=== PATIENT | male | born 1945 | race African-American/Black ===

== ENCOUNTER 2024-02-19 11:50 | Outpatient (CLI) | payer OTHER, SELFPAY ==
[2024-02-19 12:20] LABS: Basophils Absolute Auto 0.1 K/mm3 (0.0-0.1); Basophils Percent Auto 0.6 % (0.2-1.2); Eosinophils Absolute Auto 0.1 K/mm3 (0-0.3); Eosinophils Percent Auto 0.7 % (0-4.4); Hematocrit 43.5 % (42.0-52.0); Hemoglobin 15.4 g/dL (14.0-18.0); Immature Granulocyte Absolute 0.04 K/mm3 (0.00-0.031); Immature Granulocyte Percent A 0.5 % (0-0.5); Lymphocytes Absolute Auto 2.18 K/mm3 (0.9-3.2); Lymphocytes Percent Auto 25.8 % (18.3-44.2); Mean Corpuscular HGB Conc 35.4 g/dl (32-36); Mean Corpuscular Hemoglobin 29.7 pg (26-34); Mean Platelet Volume 10.6 fl (7.4-10.4); Monocytes Absolute Auto 0.7 K/mm3 (0.1-0.6); Monocytes Percent Auto 8.5 % (2.6-8.5); Neutrophils Absolute Auto 5.4 K/mm3 (1.3-6.7); Neutrophils Percent Auto 63.9 % (45.5-73.1); Platelet Count Result 212 k/mm3 (150-375); Red Blood Count 5.18 M/mm3 (4.6-6.20); Red Cell Distribution Width 14.5 % (11.5-14.5); White Blood Count 8.5 K/mm3 (4.5-10.0)
[2024-02-19 12:33] LABS: Alanine Aminotransferase 35 U/L (6-50); Albumin Level 4.4 g/dL (3.5-5.1); Alkaline Phosphatase 77 U/L (38-126); Anion Gap 9 mmol/L (4-12); Aspartate Amino Transferase 31 U/L (17-59); Bilirubin,Total 1.5 mg/dL (0.2-1.3); Blood Urea Nitrogen 15 mg/dL (9-20); Calcium 9.6 mg/dL (8.4-10.2); Carbon Dioxide 27 mmol/L (22-30); Chloride 103 mmol/L (98-107); Cholesterol 127 mg/dL (0-200); Estimated Glomerular Filt Rate 55; Glucose 102 mg/dL (65-110); HDL Direct 52 mg/dL; Hemoglobin A1C 5.8 % (<5.7); Potassium 4.2 mmol/L (3.4-5.0); Sodium 139 mmol/L (137-145); Triglycerides 114 mg/dL (<150)
[2024-02-19 12:44] LABS: LDL Cholesterol Direct 54 mg/dL
[2024-02-19 12:46] LABS: Add Urine Microscopic? NO; Appearance Urine Clear (Clear); Bilirubin Urine Negative (Negative); Blood Urine Negative (Negative); Color Urine Yellow (Yellow); Glucose Urine UA 3+ mg/dL (Negative); Ketones Urine Negative (Negative); Leukocyte Esterase Ur Negative LEU/UL (Negative); Nitrate Urine Negative (Negative); Protein Urine Negative (Negative); Specific Grav Ur 1.036 (1.001-1.035); Urobilinogen Urine 0.2 mg/dL (<2.0)
[2024-02-19 13:02] LABS: Prostate Specific Antigen 2.1 ng/mL (< OR = 4.0)
[2024-02-19 13:11] LABS: Free T4 Free Thyroxine 0.88 ng/mL (0.78-2.19); Vitamin D 25 Hydroxy 64.1 ng/mL
== END 2024-02-19 11:51 | disposition home or self-care (01) ==
PROVIDERS: PCP Internal Medicine; Visit Provider Internal Medicine
DX: I10 Essential (primary) hypertension (principal); E78.5 Hyperlipidemia, unspecified; Z13.1 Encounter for screening for diabetes mellitus; Z79.899 Other long term (current) drug therapy; E55.9 Vitamin D deficiency, unspecified; Z13.29 Encounter for screening for other suspected endocrine disorder; Z12.5 Encounter for screening for malignant neoplasm of prostate
CPT/HCPCS: 36415; 80053; 80061; 81003; 82306; 83036; 84153; 84439; 84443; 85025; G0103

== ENCOUNTER 2024-10-06 10:20 | Outpatient (CLI) | payer OTHER, SELFPAY ==
[2024-10-06 11:03] LABS: Alanine Aminotransferase 37 U/L (6-50); Albumin Level 4.1 g/dL (3.5-5.1); Alkaline Phosphatase 80 U/L (38-126); Anion Gap 7 mmol/L (4-12); Aspartate Amino Transferase 26 U/L (17-59); Bilirubin,Total 0.8 mg/dL (0.2-1.3); Blood Urea Nitrogen 14 mg/dL (9-20); Calcium 9.3 mg/dL (8.4-10.2); Carbon Dioxide 25 mmol/L (22-30); Chloride 105 mmol/L (98-107); Cholesterol 123 mg/dL (0-200); Estimated Glomerular Filt Rate 46; Glucose 91 mg/dL (65-110); HDL Direct 55 mg/dL; Sodium 137 mmol/L (137-145); Triglycerides 94 mg/dL (<150)
[2024-10-06 11:14] LABS: LDL Cholesterol Direct 41 mg/dL
[2024-10-06 11:20] LABS: Add Urine Microscopic? NO; Appearance Urine Clear (Clear); Bilirubin Urine Negative (Negative); Blood Urine Negative (Negative); Color Urine Yellow (Yellow); Glucose Urine UA 3+ mg/dL (Negative); Ketones Urine Negative (Negative); Leukocyte Esterase Ur Negative LEU/UL (Negative); Nitrate Urine Negative (Negative); Protein Urine Negative (Negative); Specific Grav Ur 1.016 (1.001-1.035); Urobilinogen Urine 0.2 mg/dL (<2.0); pH Urine 6.5 (5.0-9.0)
--- OUTSIDE RECORDS SUMMARY | 2024-10-06 11:39 | XMS_ITS | Clinical Summary ---
Author Organization [facility] [employer] Address [address] [place] [address] Care Team Providers Care Vascular Neurologist Name Role Phone Unavailable Primary Care Provider Unavailabl e Source Comments [facility] [employer],non-owned Affiliates and Associated Physician Practices is amultiple site organization consisting of ambulatory clinics and hospital sitesin [place], [place], [place] and [place]. This disclosure is being madepursuant to the Care Everywhere program and may not contain all information available regarding this patient. Last updated 18.[facility] [employer] Allergies No known active allergies Medications * Be aware that medications may not be up to date on this document. Alwaysverify current medications with the patient. No known medications Social History Tobacco Use Types Packs/Day Years Used Date Smoking Tobacco: Never Sex and Gender Information Value Date Recorded Sex Assigned at Not on file Legal Sex Male 7:59 AM CDT Gender Identity Not on file Sexual Orientation Not on file Last Filed Vital Signs Vital Sign Reading Time Taken Comments Blood Pressure 144/85 01/06/2013 10:37 AM CDT Pulse 64 01/06/2013 10:37 AM CDT Temperature - - Respiratory Rate 16 01/06/2013 10:37 AM CDT Oxygen Saturation 100% 01/06/2013 10:37 AM CDT Inhaled Oxygen Concentration - - Weight - - Height - - Body Mass Index - - Plan of Treatment Health Maintenance Due Date Last Done Comments HEPATITIS C SCREENING 06/20/1963 DTAP/TDAP/TD VACCINES (1 - Tdap) 1966 PNEUMOCOCCAL VACCINE 50+ (1 of 1 - PCV) 1997 ZOSTER VACCINE (1 of 2) 1997 Respiratory Syncytial Virus (RSV) Vaccine Pt: or over 60 yrs (1 - 1-dose 75+ series) 2022 COVID-19 VACCINE (2023-2 5 season) 2024 DEPRESSION SCREENING 06/15/2024 INFLUENZA VACCINE (Season Ended) 2025 HEPATITIS B VACCINE Aged Out No longe r eligible based on patient's age to complete this topic HIB VACCINE Aged Out No longer eligi ble based on patient's age to complete this topic HPV VACCINE Aged Out No longer eligi ble based on patient's age to complete this topic MENINGOCOCCAL (Group B) VACC INE SHARED DECISION-MAKING Aged Out No longer eligibl e based on patient's age to complete this topic MENINGOCOCCAL GROUPS A/C/Y/W VACCINE Aged Out No longer eligible b ased on patient's age to complete this topic Insurance MEDICARE [facility]
--- OUTSIDE RECORDS SUMMARY | 2024-10-06 11:39 | XMS_ITS | Clinical Summary ---
Author Organization [facility] Address [address], [address] [address] Phone Care Team Providers Care Crystal Flat Grinder Name Role Phone Provider, Unknown Primary Care Provider Unavaila ble Social History Tobacco Use Types Packs/Day Years Used Date Smoking Tobacco: Never Assessed Sex and Gender Information Value Date Recorded Sex Assigned at Not on file Legal Sex Male 11:46 PM CDT Gender Identity Not on file Sexual Orientation Not on file Plan of Treatment Health Maintenance Due Date Last Done Comments Hepatitis C Virus (HCV) Screening 1945 Zoster Immunization (3 of 3) 02/26/2022 01/01/2022, 12/14/2019, 12/13/2009 Respiratory Syncytial Virus (RSV) Immunization (Adult) (1 - 1-dose 75+ series) 2022 Influenza Immunization (#1) 2024 10/0 12/2020, 03/10/2020, 03/17/2019, Additional history exists SARS-COV-2 Immunization ( season) 2024 09/16/2021, 03/09/2021, 07/30/2020, Additional history exists DTaP/Tdap/Td Immunization Discontinued 03/21/2021 TdaP Immunization Completed 03/21/2021 Pneumococcal Immunization (50+ years) Completed 01/01/2022, 01/21/2019, 08/04/2014 Hepatitis B Immunization Aged Out No longer eligible based on patient's age to complete this topic Meningococcal Immunization (ACWY) Aged Out No longer eligible based on patient's age to complete this topic Rotavirus Immunization Aged Out No lo nger eligible based on patient's age to complete this topic Insurance MEDICARE C [employer] on file Care Teams Crystal Flat Grinder Relationship Specialty Start Date End Date Provider, Unknown UNKNOWN PCP - General 01/28/22
--- OUTSIDE RECORDS SUMMARY | 2024-10-06 11:39 | XMS_ITS | Clinical Summary ---
Author Organization [facility] Address [address] [place] [address] Care Team Providers Care Grocery Stock Clerk Name Role Phone Molly Weeks NP Unavailable Mele Smith MD Unavailable Andreina Corcoran NP Primary Care Provider Marlene Perez DO Unavailable [phone] Allergies No known active allergies Medications esomeprazole DR (NexIUM) 40 mg capsule Take 1 capsule (40 mg total) by mouth daily as needed Active losartan (COZAAR) 100 mg tablet Take 1 tablet (100 mg total) by mouth daily 12/19/19 21 Active vardenafiL (LEVITRA) 20 mg tablet Take by mouth daily as needed 05/23/20 21 Active cholecalcifero l (VITAMIN D-3) 400 unit capsule Active multivitamin tablet Take 1 tablet by mouth Active diltiaZEM CD (CARDIZEM CD) 360 mg 24 hr capsule Take 1 capsule (360 mg total) by mouth daily 02/12/20 23 Active Jardiance 10 mg tablet Take 1 tablet (10 mg total) by mouth daily 04/28/20 23 Active rosuvastatin (CRESTOR) 20 mg tablet Take 1 tablet (20 mg total) by mouth daily 02/12/20 23 Active papaverine-phe ntolamine-alpr ostadil (TRIMIX) solution injection 0.1 mL by intracavernosal route once for 1 dose 5 mL 6 05/01/20 23 Active hydrOXYzine (ATARAX) 10 mg tablet Take 1 tablet (10 mg total) by mouth daily as needed (nausea) 60 tablet 2 12/11/19 24 Active cyclobenzaprin e (FLEXERIL) 10 mg tablet Take 1 tablet (10 mg total) by mouth daily as needed for muscle spasms 60 tablet 2 12/11/19 24 Active Active Problems Problem Noted Date Diagnosed Date Encounter for screening colonoscopy 06/06/2024 Dizziness and giddiness 05/28/2021 Assessment & Plan (05/28/2021 12:20 PM BLOOD DONOR UNIT ASSISTANT): Hearing and Balance testing - call with results 64 ounces of caffeine free and soda free fluid daily ounces Referral to Cardiology Sensorineural hearing loss (SNHL) of both ears 1 07/29/2020 Assessment & Plan (01/13/2023 8:25 AM CDT): -chronic, stable -continue seeing Dr. Perez ENT as needed Assessment & Plan (05/28/2021 12:21 PM BLOOD DONOR UNIT ASSISTANT): Hearing and Balance testing - call with results 64 ounces of caffeine free and soda free fluid daily ounces Referral to Cardiology Ringing in ears, bilateral 05/28/2021 Assessment & Plan (05/28/2021 12:21 PM BLOOD DONOR UNIT ASSISTANT): Hearing and Balance testing - call with results 64 ounces of caffeine free and soda free fluid daily ounces Referral to Cardiology History of colon polyps 05/08/2021 Assessment & Plan (01/13/2023 6:59 AM CDT): Last colonoscopy completed 05/29/2021. Repeat in 3 years Personal history of colon cancer 05/08/2021 Overview (05/08/2021): Added automatically from request for surgery [id number] Hypertensive kidney disease with stage 3a chronic kidney disease 03/21/2021 Assessment & Plan (01/13/2023 8:24 AM CDT): -chronic, stable -Discussed/ordered labs -continue on amlodipine 5 mg daily and losartan 10 mg daily -recommend healthy, low-salt diet Assessment & Plan (02/13/2022 7:45 AM CDT): HPI: Condition is at goal A&P: Discussed/ordered labs, encouraged healthy, low carbohydrate lifestyle and at least 150min/week of exercise, continue on amlodipine 5mg daily, losartan 100mg daily Assessment & Plan (08/19/2021 12:01 PM BLOOD DONOR UNIT ASSISTANT): HPI: Condition is not at/near goal A&P: Discussed/ordered labs, encouraged healthy, low carbohydrate lifestyle and at least 150min/week of exercise, continue on losartan 100mg daily. Start on amlodipine 5mg daily. EKG done, normal, Slight sinus bradycardia. Nothing to be concerned with. Check blood pressure once daily. Send in blood pressure readings in [facility] in 1 week. Assessment & Plan (03/21/2021 10:01 AM CDT): HPI: Condition is stable A&P: Discussed/ordered labs, encouraged healthy, low carbohydrate lifestyle and at least 150min/week of exercise, continue on losartan 100mg daily GERD (gastroesophageal reflux disease) Assessment & Plan (01/13/2023 6:58 AM CDT): HPI: Condition is stable Continue on current meds esomeprazole the DR 40 mg daily as needed, encouraged healthy diet and exercise Avoid trigger foods including: carbonated beverages, caffeine, spicy, fried foods, tomatoes, cucumbers, mint, and acidic fruits/juices like orange/lemon/grapefruit. Avoid eating/drinking anything for at least 2 hours before bed. Sleep with bed propped. Discussed increased risk of cdif , bone loss and vit B12 deficiency with director long term care use of PPI with pt, would like to remain on medication at this time Assessment & Plan (03/21/2021 10:00 AM CDT): HPI: Condition is stable Continue on current meds esomeprazole 40mg daily as needed only-usually about once a week, encouraged healthy diet and exercise Avoid trigger foods including: carbonated beverages, caffeine, spicy, fried foods, tomatoes, cucumbers, mint, and acidic fruits/juices like orange/lemon/grapefruit. Avoid eating/drinking anything for at least 2 hours before bed. Sleep with bed propped. Discussed increased risk of cdif and vit B12 deficiency with director long term care use of PPI with pt, would like to remain on medication at this time Osteoarthritis 03/21/2021 Assessment & Plan (01/13/2023 8:24 AM CDT): -chronic, stable -patient receives injections in his hands and feet about twice a year -Discussed/ordered labs -continue seeing Dr. Smith Rheumatology Assessment & Plan (03/21/2021 9:59 AM CDT): HPI: Condition is stable , receives injections in hands and feet about twice a year A&P: Discussed/ordered labs, encouraged healthy, low carbohydrate lifestyle and at least 150min/week of exercise, continue f/u injections with rheumatology He will infrequently need tylenol or ibuprofen for breakthrough pain, continue on turmeric Peyronie disease 09/26/2020 Assessment & Plan (01/13/2023 7:00 AM CDT): -chronic, stable -Discussed/ordered labs -continue on trimix injections as directed and vardenafil 2.5 mg daily as needed -continue seeing Molly Weeks urology Assessment & Plan (03/21/2021 10:05 AM CDT): HPI: Condition is stable A&P: Discussed/ordered labs, encouraged healthy, low carbohydrate lifestyle and at least 150min/week of exercise, continue on trimix injections as directed, uses them infrequently. Continue on tadalafil 2.5mg. Continue to see oMlly Weeks Urology Resolved Problems Problem Noted Date Diagnosed Date Resolved Date Near syncope 05/28/2021 02/13/2022 Assessment & Plan (05/28/2021 12:21 PM BLOOD DONOR UNIT ASSISTANT): Referral to Cardiology BMI 25.0-25.9,adult 03/21/2021 02/14/20 22 Assessment & Plan (08/19/2021 11:36 AM BLOOD DONOR UNIT ASSISTANT): HPI: Condition is improving goal BMI <30 Pt down 13 pounds. A&P: Healthy, high-protein, lower carbohydrate, lower fat lifestyle and exercise for 150min/week recommended Substitutions: Recommend tracking everything you put in your mouth on an alexsandra like [employer] or [employer] carries a zero net carb bread If you are looking for whole potatoes, like to use in soup or new potato shape/flavor, radishes are a great replacement If you are looking for mashed potatoes, riced cauliflower in the frozen bag section are a great replacement For pasta, try using zucchini noodles, lay them out on a cookie sheet and pat dry with a tea towel to try to remove as much moisture as possible. Heat your pasta sauce on the stove and put the noodles in for 30-45 seconds. If you leave them in much longer they will become mushy [place] and/or coconut flour instead of regular flour For pizza dough, try fathead pizza dough recipe online. To get a crispy crust, bake on one side for 8-12 min, then flip over and bake on the other side for 8-12 min, then put toppings on and bake until the cheese on top of pizza melts chaffles recipe online For ice cream, try the brand Enlightened To replace coffee creamer and make it low carb, use heavy creamer with sugar free Torani sweetener For chips, try Whisps or pork rinds For yogurt, try Two Good mauritian yogurt Use Pinterest for recipe ideas. Type in low carb... Assessment & Plan (03/21/2021 10:11 AM CDT): HPI: Condition is stable goal BMI <30 A&P: Healthy, high-protein, lower carbohydrate, lower fat lifestyle and exercise for 150min/week recommended Substitutions: Recommend tracking everything you put in your mouth on an alexsandra like [employer] or [employer] carries a zero net carb bread If you are looking for whole potatoes, like to use in soup or new potato shape/flavor, radishes are a great replacement If you are looking for mashed potatoes, riced cauliflower in the frozen bag section are a great replacement For pasta, try using zucchini noodles, lay them out on a cookie sheet and pat dry with a tea towel to try to remove as much moisture as possible. Heat your pasta sauce on the stove and put the noodles in for 30-45 seconds. If you leave them in much longer they will become mushy [place] and/or coconut flour instead of regular flour For pizza dough, try fathead pizza dough recipe online. To get a crispy crust, bake on one side for 8-12 min, then flip over and bake on the other side for 8-12 min, then put toppings on and bake until the cheese on top of pizza melts chaffles recipe online For ice cream, try the brand Enlightened To replace coffee creamer and make it low carb, use heavy creamer with sugar free Torani sweetener For chips, try Whisps or pork rinds For yogurt, try Two Good mauritian yogurt Use Pinterest for recipe ideas. Type in low carb... RUQ pain 09/07/2019 03/21/2021 Assessment & Plan (09/07/2019 10:42 AM CDT): Pt had RUQ pain that felt similar to when he had SBO back in 2014. He says it went away after he had a BM and says BM was harder than usual. Since then, has not had any pain and normal BM's. Pt had colonoscopy 10/2017 and due again next October. Pt is aware. We discussed red flag symptoms and to call if any of these occur, otherwise f/u in office prn. Pt verbalized understanding. Impacted cerumen of left ear 07/13/2018 03/21/2021 Assessment & Plan (07/13/2018 5:36 PM BLOOD DONOR UNIT ASSISTANT): Excessive Ear Wax Prevention Cerumen accumulation or excessive ear wax can cause symptoms like-Hearing loss ?Earache ?Ear fullness ?Itchiness ?Reflex cough ?Dizziness ?Tinnitus Normal ears use a cotton ball dipped in mineral oil, olive oil, Baby oil, or [place] oil and place in the external canal for 10 to 20 minutes once per week. For Chronic cerumen impactions can perform on a scheduled baseis-3 drops of olive oil or Baby oil in each ear, three times daily for Three weeks, Three times per year. Routine cleaning of the ears by a health professional every 6 to 12 months is also suggested. Patients should be instructed that chronic use of cotton swabs or cerumenolytics should not be performed. Cerumenolytics are safe to use in patients with NO history of infections, perforations, or otologic surgery. Cerumenolytics should be avoided if tympanic membrane damage is suspected. If a patient has a history of drainage from the ear, ear pain, or frequent ear infections earlier in life, then the tympanic membrane may be impaired and cerumenolytics should not be employed. 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 Bain. He followed up with oncology and GI. Cleared now. Encounters Date Type Department Care Team Description 08/01/2024 1:02 PM BLOOD DONOR UNIT ASSISTANT Anesthesia Event [address] [address] Jaime Fox MD 08/01/2024 12:00 PM BLOOD DONOR UNIT ASSISTANT - 08/01/2024 12:30 PM BLOOD DONOR UNIT ASSISTANT Surgery [address] [address] Zoran Bain MD COLON REMOVAL SNARE 08/01/2024 11:04 AM BLOOD DONOR UNIT ASSISTANT - 08/01/2024 2:22 PM BLOOD DONOR UNIT ASSISTANT Hospital Encounter [address] [address] Zoran Bain MD Encounter for screening colonoscopy; Personal history of colon cancer Discharge Disposition: Discharge to home or self care 08/01/2024 Results Follow-Up [facility] Primary [facility] at [address] [place] [address] Andreina Corcoran NP from Last 3 Months Immunizations Immunization Administration Dates Next Due Influenza, Quad, Adjuvantate d, Intramuscular 04/07/2023 Influenza, Quadrivalent, Aisha l Culture-based MDCK, Preservative Free, Antibiotic Free, Intramuscular 03/17/2019,03/17/2019 Influenza, Quadrivalent, Hig h Dose, Preservative Free, Intrr 03/24/2022,03/21/2021,03/10/2020,03/10 Influenza, Quadrivalent, Spl it, Intramuscular 03/13/2016 Influenza, Quadrivalent, Spl it, Preservative Free, Intramuscular 03/19/2017,04/20/2015 Influenza, Trivalent, High D ose, Split, Preservative Free, Intramuscular 03/07/2024 Influenza, Trivalent, IM (MDV) 03/31/2014 Influenza, Unspecified 03/24/2022(Deferr ed: Patient Refused),02/13/2022(Deferred: Other) Pfizer SARS-CoV-2 Monovalent Vaccination (12+ Yrs) PURPLE 03/24/2022(Deferred: Patient Refused),03/09/2021,03/09/2021, 021,07/30/2020,07/09/2020 Pneumococcal Conjugate PCV 13 08/04/2014 Pneumococcal Conjugate Pcv20 01/01/2022 Pneumococcal Polysaccharide PPV23 01/21/2019,02/2019 RSV Vaccine, Pref, Recombina nt, Subunit, Adjuvanted, PF, IM (Arexvy) 04/07/2023 Tdap 03/21/2021 ZOSTER LIVE 12/14/2019,12/13/2009,12/13/2009 ZOSTER Recombinant 06/20/2022,01/01/2022 Surgical History Surgery Date Site/Laterality Comments POLYPECTOMY COLONOSCOPY 10/13/2017 - 11/12/2017 COLONOSCOPY 05/15/2021 - 06/14/2021 Medical History Medical History Date Comments Colon polyp Colon cancer (HCC) RUQ pain 09/07/2019 Impacted cerumen of left ear 07/13/2018 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 Bain. He followed up with oncology and GI. Cleared now. GERD (gastroesophageal reflux disease) Hypertension Near syncope 05/28/2021 Family History Medical History Relation Name Comments No Known Problems Father Cervical cancer Mother Diabetes Mother Hypertension Mother Relation Name Status Comments Father Mother Social History Tobacco Use Types Packs/Day Years Used Date Smoking Tobacco: Never Smokeless Tobacco: Never Tobacco Cessation:Counseling Given: Yes Alcohol Use Standard Drinks/Week Comments No 0 (1 standard drink = 0.6 oz pur e alcohol) AUDIT-C Answer Date Recorded Q1: How often do you have a drink containing alcohol? Never 03/07/2024 Q2: How many drinks containi ng alcohol do you have on a typical day when you are drinking? Patient does not drink Q3: How often do you have si x or more drinks on one occasion? Never 03/07/2024 PHQ-2 Answer Date Recorded PHQ-2 Total Score (If total score is 3 or more points, staff should administer the PHQ-9) 0 03/07/2024 Personal Safety Answer Date Recorded Have you ever been in or are you currently in a harmful physical or emotional relationship or is someone making you feel afraid or unsafe? Denies 08/01/2024 Sex and Gender Information Value Date Recorded Sex Assigned at Not on file Legal Sex Male 3:52 AM BLOOD DONOR UNIT ASSISTANT Gender Identity Not on file Sexual Orientation Not on file Obstetrics History Last Filed Vital Signs Vital Sign Reading Time Taken Comments Blood Pressure 139/66 08/01/2024 2:00 PM BLOOD DONOR UNIT ASSISTANT Pulse 66 08/01/2024 2:00 PM BLOOD DONOR UNIT ASSISTANT Temperature 36.7 C (98 F) 08/01/2024 2:00 PM BLOOD DONOR UNIT ASSISTANT Respiratory Rate 16 08/01/2024 2:00 PM BLOOD DONOR UNIT ASSISTANT Oxygen Saturation 98% 08/01/2024 2:00 PM BLOOD DONOR UNIT ASSISTANT Inhaled Oxygen Concentration - - Weight 72.6 kg (160 lb) 08/01/2024 11:13 AM BLOOD DONOR UNIT ASSISTANT Height 172.7 cm (5' 8 ) 08/01/2024 11:13 AM BLOOD DONOR UNIT ASSISTANT Body Mass Index 24.33 08/01/2024 11:13 AM BLOOD DONOR UNIT ASSISTANT Plan of Treatment Health Maintenance Due Date Last Done Comments Hepatitis B Screening 1963 Well Visit 65+ 03/24/2023 03/24/2022, 03/21/2021 Covid-19 Vaccine (9 - 2023-2 5 season) 2024 04/07/2023, 06/19/2022, 09/16/2021, Additional history exists Depression Screening 03/07/2025 03/07/2024, 01/13/2023, 03/24/2022, Additional history exists Colon Cancer Screening-FIT 08/01/202508/01, 05/29/2021, 10/19/2017, Additional history exists Colon Cancer Screening-FOBT 08/01/202507/16, 05/29/2021, 10/19/2017, Additional history exists Fall Risk Assessment 08/01/2025 08/01/2024, 03/07/2024, 01/13/2023, Additional history exists Colon Cancer Screening-Colonoscopy 08/01/2026 08/01/2024, 05/29/2021, 10/19/2017, Additional history exists Colorectal Cancer Screening 08/01/2026 Colon Cancer Screening-DNA Stool 08/01/2027 08/01/2024, 05/29/2021, 10/19/2017, Additional history exists Colon Cancer Screening-CT Colonography 08/01/2029 08/01/2024, 05/29/2021, 10/19/2017, Additional history exists Colon Cancer Screening-Sigmoidoscopy 08/01/2029 08/01/2024, 05/29/2021, 10/19/2017, Additional history exists DTaP/Tdap/Td Vaccine (2 - Td or Tdap) 03/21/2031 03/21/2021 Hepatitis C Screening Completed 05/08/2021 Pneumococcal vaccine 65+ Completed 022, 01/21/2019, 01/21/2019, Additional history exists Zoster Vaccine Completed 06/20/2022, 12/14, 12/14/2019, Additional history exists Prostate Cancer Screening-PSA Discontinued , 03/24/2022, 05/08/2021 Influenza Vaccine Completed 03/07/2024, , 03/24/2022, Additional history exists Procedures Procedure Name Priority Date/Time Associated Diagnosis Comments COLON REMOVAL SNARE 08/01/2024 1 2:57 PM BLOOD DONOR UNIT ASSISTANT Encounter for screening colonoscopy Personal history of colon cancer COLONOSCOPY 08/01/2024 11:38 AM BLOOD DONOR UNIT ASSISTANT SURGICAL PATHOLOGY STAT 08/01/2024 10 :12 AM BLOOD DONOR UNIT ASSISTANT Encounter for screening colonoscopy Personal history of colon cancer PSA SCREEN Routine 01/20/2023 1:12 PM CDT HEPATITIS C ANTIBODY Routine 05/08/2021 1:46 PM BLOOD DONOR UNIT ASSISTANT Encounter for hepatitis C screening test for low risk patient from Last 3 Months or Most Recently Relevant to Health Maintenance Results * Colonoscopy (08/01/2024 11:38 AM BLOOD DONOR UNIT ASSISTANT) Anatomical Region Laterality Modality Other Narrative Procedure Note Zoran Bain MD - 08/01/2024 11:[address] [facility] Patient Name: Symone Lees Procedure Date: 08/01/2024 11:38 AM Date of : 1945 Admit Type: Outpatient Age: 79 Gender: Male Attending MD: Zoran Bain M.D. Room: [facility] ENDOSCOPY ROOM 1 Note Status: Finalized Patient Profile: This is a 79 year old male. History of adenomapolyps. No family history of colon cancer. Procedure: Colonoscopy Indications: Surveillance: Personal history of adenomatouspolyps on last colonoscopy 3 years ago, Last colonoscopy: May 2021 Referring MD: Andreina Corcoran NP Providers: Ahmad A. Karadaghy, M.D. Impression: - One 18 mm polyp in the transverse colon, removed with a hot snare. Resected and retrieved. Clip (MR conditional) was placed. 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 - Internal hemorrhoids. Recommendation: - Await pathology results. - Repeat colonoscopy in 2 years for surveillance. - Continue present medications. Medicines: Monitored Anesthesia Care Complications: No immediate complications. Estimated Blood Loss: Estimated blood loss: none. Procedure: Pre-Anesthesia Assessment: - Prior to the procedure, a History and Physicalwas performed, and patient medications and allergieswere reviewed. The patient's tolerance of previous anesthesia was also reviewed. The risks andbenefits of the procedure and the sedation options and risks were discussed with the patient. All questions were answered, and informed consent was obtained. Prior Anticoagulants: The patient has taken noanticoagulant or antiplatelet agents. ASA Grade Assessment: Per anesthesia note and evaluation. After reviewing the risks and benefits, the patient was deemed in satisfactory condition to undergo the procedure. The benefits, risks and alternatives of theprocedure and sedation were discussed and informed consentwas obtained. All questions were answered. Please referto the signed informed consent document in the medical record. The bowel preparation used was Miralax via split dose instruction. The bowel preparation usedwas bisacodyl tablets via split dose instruction. The scope was passed under direct vision. The Pediatric Colonoscope [id number] was introduced through the anus and advanced to the the cecum, identified by appendiceal orifice and ileocecalvalve. The quality of the bowel preparation was good.Bowel prep was administered using a split dose. Findings: The perianal and digital rectal examinations were normal. The ascending colon and cecum appeared normal. An 18 mm polyp was found in the transverse colon. The polyp was semi-pedunculated. The polyp was removed with a hot snare. Resectionand retrieval were complete. To prevent bleeding after the polypectomy,one hemostatic clip was successfully placed (MR conditional). 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 There was no bleeding at the end ofthe procedure. The rectum, sigmoid colon and descending colon appeared normal. Internal hemorrhoids were found during retroflexion. The hemorrhoids were small. Electronically signed by Zoran Bain M.D. Zoran Bain M.D. 08/01/2024 1:37:15 PM Number of Addenda: 0 Note Initiated On: 08/01/2024 11:38 AM Procedure Code(s): --- Professional --- 99913, Colonoscopy, flexible; with removal of tumor(s), polyp(s), or other lesion(s) by snare technique Diagnosis Code(s): --- Professional --- Z86.010, Personal history of colonic polyps K64.8, Other hemorrhoids D12.3, Benign neoplasm of transverse colon (hepatic flexure orsplenic flexure) CPT copyright 2020 [employer]. All rights reserved. The codes documented in this report are preliminary and upon assembler unit reviewmay be revised to meet current compliance requirements. Recognized by the [employer] for promoting quality in endoscopy Zoran Bain MD ENDOSCOPY PROCEDURES Final Result * Surgical pathology (08/01/2024 10:12 AM BLOOD DONOR UNIT ASSISTANT) Tissue specimen (specimen) (Polyp(s), colon/colorectal, esophageal, gastric) 08/01/2024 1:25 PM BLOOD DONOR UNIT ASSISTANT Narrative PATHOLOGY [facility] ([place] - 08/03/2024 12:19 PM BLOOD DONOR UNIT ASSISTANT EPIC results best viewed via link to PDF [facility] Department of Pathology [address] [place] [address] Note to Patients: This report may contain a detailed description of human tissue sent by a health care provider to the laboratory for pathologic evaluation. The content of this report is essential for diagnosis and may provide important critical findings. This information may be unfamiliar to patients to review without a medical professional present. It is advised that the patient review this report in the presence of a health care provider who can answer questions and explain the details. Final Report Patient Name: SYMONE LEES Address: [address] [place] [id number] Gender: M : 1945 (Age: 79) Service: Gastro Location: [facility] Hospital #: [id number] Patient Type: [facility] Taken: 08/01/2024 Received: 08/02/2024 Accessioned: 08/02/2024 Reported: 08/03/2024 Physician(s):Dr. Zoran Bain M.D. Diagnosis: Colon, transverse, biopsy: - Tubular adenoma. - No evidence of high-grade dysplasia or malignancy. Ángel Avila MD Report Electronically Reviewed and Signed Out By Ángel Avila MD 08/03/2024 12:19:20 Specimen(s) Received: A: Transverse polyp x 1 Microscopic Description: Microscopic examination of the bisected specimen shows polypoid fragments of colonic mucosa with adenomatous mucosal changes consistent with a tubular adenoma. There is no evidence of high-grade dysplasia or malignancy. Clinical History: Personal history of colon cancer. Screening colonoscopy. Gross Description: The specimen is submitted in a single formalin filled container labeled SYMONE LEES and transverse polyp x1 . It is 1 red-thyaer polypoid tissue fragment measuring 7 mm. Inked and bisected. All in one cassette. Cr Burrell R.N., P.A./Anjali Simon M.D. REPORT IMAGES AND SCANNED DOCUMENTS, IF INCLUDED, ONLY VIEWABLE IN PDF VERSION OF REPORT The performance characteristics of some immunohistochemical stains, fluorescence in-situ hybridization tests and immunophenotyping by flow cytometry cited in this report (if any) were determined by the Surgical Pathology Department at [facility] as part of an ongoing air quality technician program and in compliance with federally mandated regulations drawn from the Clinical Laboratory Improvement Act of 1988 (CLIA '88). Some of these tests rely on the use of analyte specific reagents and are subject to specific labeling requirements by the US Food and Drug Administration. Such diagnostic tests may only be performed in a facility that is certified by the Department of Health and Human Services as a high complexity laboratory under CLIA '88. The FDA has determined that such clearance or approval is not necessary. This test is used for clinical purposes. It should not be regarded as investigational or for research. Nevertheless, federal rules concerning the medical use of analyte specific reagents require that the following disclaimer be attached to the report: This test was developed and its performance characteristics determined by the Surgical Pathology Department [facility]. It has not been cleared or approved by the U. S. Food and Drug Administration. Note for decalcified specimens: This assay has not been validated on decalcified tissues. Results should be interpreted with caution given the possibility of false negativity on decalcified specimens Zoran Bain MD LAB PATHOLOGY ORDERABLES F inal Result Performing Organization Address [facility] Co de Phone Number PATHOLOGY [facility] ([place]) 1 [place] [address] * PSA screen (01/20/2023 1:12 PM CDT) Pathologist [facility] PSA-Total 1.73 <=6.20 ng/mL [facility] ([place]) Comment: Interpretive Data AGE SEX REFERENCE INTERVAL 0 minutes-150 years Female None 0 minutes-49 years Male None 50-59 years Male 0-3.90 60-69 years Male 0-5.40 70-79 years Male 0-6.20 80-150 years Male 0-6.20 The Patric PSA Total assay procedure was used. Results from different manufacturers or methods may not be comparable. Serial testing should be performed using the same method. Current interpretive data last revised 21. Blood 01/20/2023 1:12 PM CDT 01/20/2023 1:46 PM CDT Ganesh Shankar MD LAB BLOOD ORDERABLES Final Re sult Performing Organization Address [facility] Co de Phone Number [facility] ([place] 1 [facility] [place] [address] * Hepatitis C antibody (05/08/2021 1:46 PM BLOOD DONOR UNIT ASSISTANT) Hep C Ab Nonreactive Nonreactive [facility] ([place]) Comment: Interpretive Data Nonreactive: Antibodies to HCV not detected. Does NOT exclude the possibility of recent exposure to HCV. Equivocal: Equivocal for HCV antibodies. Supplemental molecular testing will be automatically performed to determine infection status in accordance with current CDC screening recommendations. Reactive: Positive for HCV antibodies. This may represent current or past HCV infection. Supplemental molecular testing will be automatically performed to determine current infection status in accordance with current CDC screening recommendations. Interpretive data was last revised on 2019. Testing performed by: [facility], [address] [place] [address]., [id number] Blood 05/08/2021 1:46 PM BLOOD DONOR UNIT ASSISTANT 05/08/2021 7:24 PM BLOOD DONOR UNIT ASSISTANT us Yanni Quan NP LAB MICROBIOLOGY - GENERAL ORDERABLES Final Result [facility] ([place]) 1 [facility] [place] [address] from Last 3 Months or Most Recently Relevant to Health Maintenance Insurance MEDICARE [facility] H[facility]/PPO Address: [address] [address] [place] [address] R [facility]/PPO Address: [address] [address] Advance Directives For more information, please contact: [phone] * Full Code (Latest Code Status on File) Date Activated Date Inactivated Comments 08/01/2024 11:14 AM 08/01/2024 6:22 PM * Full Code Date Activated Date Inactivated Comments 08/01/2024 11:14 AM 08/01/2024 11:14 AM * Full Code Date Activated Date Inactivated Comments 05/29/2021 10:53 AM 05/29/2021 5:07 PM * Full Code Date Activated Date Inactivated Comments 06/30/2018 12:50 PM 06/30/2018 6:10 PM * Full Code Date Activated Date Inactivated Comments 06/30/2018 12:50 PM 06/30/2018 12:50 PM Care Teams Grocery Stock Clerk Relationship Specialty Start Date End Date Andreina Corcoran NP [address] [place] [id number] PCP - General Family Medicine 01/13/23 Molly Weeks NP Nurse Practitioner Urology 03/21/21 Mele Smith MD [address] [place], [place] [address] [address] Referring Physician Internal Medicine 03/21/21 Marlene Perez DO [address] [place] [address] DR [facility] [address] [place] [address] Consulting Physician Otolaryngology 01/13/23
--- OUTSIDE RECORDS SUMMARY | 2024-10-06 11:39 | XMS_ITS | Referral Summary ---
Author Organization [facility] Address [address] [place] [address] Care Team Providers Care Ct Scan Technician Name Role Phone Molly Weeks NP Unavailable Mele Smith MD Unavailable [phone] Andreina Corcoran NP Primary Care Provider [phone] Marlene Perez DO Unavailable [phone] Encounters Date Type Department Care Team Description 08/01/2024 Results Follow-Up [facility] [place] [address] [facility] [address] [place] [phone] Andreina Corcoran NP 08/01/2024 1:02 PM PACKAGER AND STRAPPER Anesthesia Event [address] [address] Jaime Fox MD 08/01/2024 12:00 PM PACKAGER AND STRAPPER - 08/01/2024 12:30 PM PACKAGER AND STRAPPER Surgery [address] [address] Zoran Bain MD COLON REMOVAL SNARE 08/01/2024 11:04 AM PACKAGER AND STRAPPER - 08/01/2024 2:22 PM PACKAGER AND STRAPPER Hospital Encounter [address] [address] Zoran Bain MD Encounter for screening colonoscopy; Personal history of colon cancer Discharge Disposition: Discharge to home or self care from Last 3 Months Allergies No known active allergies Medications esomeprazole [...] 05/28/2021 Assessment & Plan (05/28/2021 12:20 PM PACKAGER AND STRAPPER): Hearing and Balance testing - call with results 64 ounces of caffeine free and soda free fluid daily ounces Referral to Cardiology Sensorineural hearing loss (SNHL) of both ears 1 07/29/2020 Assessment & Plan (01/13/2023 8:25 AM CDT): -chronic, stable -continue seeing Dr. 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 Repeat in 3 years Personal history of colon cancer 05/08/2021 Overview (05/08/2021): Added automatically from request for surgery [id number] Hypertensive kidney disease with stage 3a chronic [...] daily Assessment & Plan (08/19/2021 12:01 PM PACKAGER AND STRAPPER): HPI: Condition is not at/near goal A&P: Discussed/ordered labs, encouraged healthy, low carbohydrate lifestyle and at least 150min/week of exercise, continue on losartan 100mg daily. Start on amlodipine 5mg daily. EKG done, normal, Slight sinus bradycardia. Nothing to be concerned with. Check blood pressure once daily. Send in blood pressure readings in [facility] in 1 week. Assessment & Plan (03/21/2021 [...] bone loss and vit B12 deficiency with prison use of PPI with pt, would like [...] of cdif and vit B12 deficiency with prison use of PPI with pt, would like [...] Continue on tadalafil 2.5mg. Continue to see Molly Weeks Urology Resolved Problems Problem Noted Date Diagnosed Date Resolved Date Near syncope 05/28/2021 02/13/2022 Assessment & Plan (05/28/2021 12:21 PM PACKAGER AND STRAPPER): Referral to Cardiology BMI 25.0-25.9,adult 03/21/2021 02/14/20 22 Assessment & Plan (08/19/2021 11:36 AM PACKAGER AND STRAPPER): HPI: Condition is improving goal BMI <30 Pt down 13 pounds. A&P: Healthy, high-protein, lower carbohydrate, lower fat lifestyle and exercise for 150min/week recommended Substitutions: Recommend tracking everything you put in your mouth on an alexsandra like [employer] or [employer] carries a zero net carb bread [...] in much longer they will become mushy [place] and/or coconut flour instead of regular flour [...] pork rinds For yogurt, try Two Good pakistani yogurt Use Pinterest for recipe ideas. Type in low carb... Assessment & Plan (03/21/2021 10:11 AM CDT): HPI: Condition is stable goal BMI <30 A&P: Healthy, high-protein, lower carbohydrate, lower fat lifestyle and exercise for 150min/week recommended Substitutions: Recommend tracking everything you put in your mouth on an alexsandra like [employer] or [employer] carries a zero net carb bread [...] in much longer they will become mushy [place] and/or coconut flour instead of regular flour [...] pork rinds For yogurt, try [employer] Good pakistani yogurt Use Pinterest for recipe ideas. Type [...] 03/21/2021 Assessment & Plan (07/13/2018 5:36 PM PACKAGER AND STRAPPER): Excessive Ear Wax Prevention Cerumen accumulation or excessive ear wax can cause symptoms like-Hearing loss ?Earache ?Ear fullness ?Itchiness ?Reflex cough ?Dizziness ?Tinnitus Normal ears use a cotton ball dipped in mineral oil, olive oil, Baby oil, or Welaka oil and place in the external canal [...] up with oncology and GI. Cleared now. Immunizations Immunization Administration Dates Next Due Influenza, [...] 03/21/2021 ZOSTER LIVE 12/14/2019,12/13/2009,12/13/2009 ZOSTER Recombinant 06/20/2022,01/01/2022 Social History Tobacco Use Types Packs/Day Years [...] on file Legal Sex Male 3:52 AM PACKAGER AND STRAPPER Gender Identity Not on file Sexual Orientation Not on file Last Filed Vital Signs Vital Sign Reading Time Taken Comments Blood Pressure 139/66 08/01/2024 2:00 PM PACKAGER AND STRAPPER Pulse 66 08/01/2024 2:00 PM PACKAGER AND STRAPPER Temperature 36.7 C (98 F) 08/01/2024 2:00 PM PACKAGER AND STRAPPER Respiratory Rate 16 08/01/2024 2:00 PM PACKAGER AND STRAPPER Oxygen Saturation 98% 08/01/2024 2:00 PM PACKAGER AND STRAPPER Inhaled Oxygen Concentration - - Weight 72.6 kg (160 lb) 08/01/2024 11:13 AM PACKAGER AND STRAPPER Height 172.7 cm (5' 8 ) 08/01/2024 11:13 AM PACKAGER AND STRAPPER Body Mass Index 24.33 08/01/2024 11:13 AM PACKAGER AND STRAPPER Plan of Treatment Not on file Procedures Procedure Name Priority Date/Time Associated Diagnosis Comments COLON REMOVAL SNARE 08/01/2024 1 2:57 PM PACKAGER AND STRAPPER Encounter for screening colonoscopy Personal history of colon cancer COLONOSCOPY 08/01/2024 11:38 AM PACKAGER AND STRAPPER SURGICAL PATHOLOGY STAT 08/01/2024 10 :12 AM PACKAGER AND STRAPPER Encounter for screening colonoscopy Personal history of colon cancer PSA SCREEN Routine 01/20/2023 1:12 PM CDT HEPATITIS C ANTIBODY Routine 05/08/2021 1:46 PM PACKAGER AND STRAPPER Encounter for hepatitis C screening test for low risk patient from Last 3 Months or Most Recently Relevant to Health Maintenance Results * Colonoscopy (08/01/2024 11:38 AM PACKAGER AND STRAPPER) Anatomical Region Laterality Modality Other Narrative Procedure Note Zoran Bain MD - 08/01/2024 11:38 AM CST [facility] Patient Name: Symone Lees Procedure Date: 08/01/2024 11:38 AM Date of : 1945 Admit Type: Outpatient Age: 79 Gender: Male Attending MD: Zoran Bain M.D. Room: [facility] ENDOSCOPY ROOM 1 Note Status: Finalized Patient Profile: This is a 79 year old male. History of adenomapolyps. No family history of colon cancer. Procedure: Colonoscopy Indications: Surveillance: Personal history of adenomatouspolyps on last colonoscopy 3 years ago, Last colonoscopy: May 2021 Referring MD: Andreina Corcoran NP Providers: Zoran Bain M.D. Impression: - One 18 mm polyp in the transverse colon, removed with a hot snare. Resected and retrieved. Clip (MR conditional) was placed. Clip plate maker: [employer]. - Internal hemorrhoids. Recommendation: - Await pathology [...] passed under direct vision. The Pediatric Colonoscope [id number] was introduced through the anus and advanced [...] clip was successfully placed (MR conditional). Clip plate maker: [employer]. There was no bleeding at the end ofthe procedure. The rectum, sigmoid colon and descending colon appeared normal. Internal hemorrhoids were found during retroflexion. The hemorrhoids were small. Electronically signed by Zoran Bain M.D. Zoran Bain M.D. 08/01/2024 1:37:15 PM Number of Addenda: 0 Note Initiated On: 08/01/2024 11:38 AM Procedure Code(s): --- Professional --- 80976, Colonoscopy, flexible; with removal of tumor(s), polyp(s), or other lesion(s) by snare technique Diagnosis Code(s): --- Professional --- Z86.010, Personal history of colonic polyps K64.8, Other hemorrhoids D12.3, Benign neoplasm of transverse colon (hepatic flexure orsplenic flexure) CPT copyright 2020 [employer]. All rights reserved. The codes documented in this report are preliminary and upon manufacturing scheduler reviewmay be revised to meet current compliance requirements. Recognized by the [employer] for promoting quality in endoscopy Zoran Bain MD ENDOSCOPY PROCEDURES Final Result * Surgical pathology (08/01/2024 10:12 AM PACKAGER AND STRAPPER) Tissue specimen (specimen) (Polyp(s), colon/colorectal, esophageal, gastric) 08/01/2024 1:25 PM PACKAGER AND STRAPPER Narrative PATHOLOGY [facility] ([place]) - 08/03/2024 12:19 PM PACKAGER AND STRAPPER EPIC results best viewed via link to PDF [facility] Department of Pathology [address] [place] [address] Note to Patients: This report may contain [...] Final Report Patient Name: SYMONE LEES Address: [address] [place] [address] Gender: M : 1945 (Age: 79) Service: Gastro Location: [facility] Hospital #: [id number] Patient Type: [facility] Taken: 08/01/2024 Received: 08/02/2024 Accessioned: 08/02/2024 [...] transverse polyp x1 . It is 1 red-thayer polypoid tissue fragment measuring 7 mm. Inked and bisected. All in one cassette. Cr Burrell R.N., P.Cathy./Anjali Simon M.D. REPORT IMAGES AND SCANNED DOCUMENTS, IF INCLUDED, ONLY VIEWABLE IN PDF VERSION OF REPORT The performance characteristics of some immunohistochemical stains, fluorescence in-situ hybridization tests and immunophenotyping by flow cytometry cited in this report (if any) were determined by the Surgical Pathology Department at [facility] as part of an ongoing quality assurance clerk program and in compliance with federally mandated [...] characteristics determined by the Surgical Pathology Department [facility]. It has not been cleared or approved by the U. S. Food and Drug Administration. Note for decalcified specimens: This assay has not been validated on decalcified tissues. Results should be interpreted with caution given the possibility of false negativity on decalcified specimens Zoran Bain MD LAB PATHOLOGY ORDERABLES F inal Result PATHOLOGY [facility] ([facility] [address] [place] [address] * PSA screen (01/20/2023 1:12 PM CDT) PSA-Total 1.73 <=6.20 ng/mL [facility] ([place]) Comment: Interpretive Data AGE SEX REFERENCE INTERVAL [...] 1:12 PM CDT 01/20/2023 1:46 PM CDT us Ganesh Shankar MD LAB BLOOD ORDERABLES Final Re sult Performing Organization Address [facility] Co de Phone Number [facility] ([place]) 1 [facility] Department [place] [address] * Hepatitis C antibody (05/08/2021 1:46 PM PACKAGER AND STRAPPER) Hep C Ab Nonreactive Nonreactive [facility] ([place]) Comment: Interpretive Data Nonreactive: Antibodies to HCV [...] last revised on 2019. Testing performed by: [facility], [address] [place] [address], [place]., [address] Blood 05/08/2021 1:46 PM PACKAGER AND STRAPPER 05/08/2021 7:24 PM PACKAGER AND STRAPPER us Yanni Quan NP LAB MICROBIOLOGY - GENERAL ORDERABLES Final Result Performing Organization Address City/[facility]/ZIP Co de Phone Number [facility] [place]) [address] [place] [address] from Last 3 Months or Most Recently Relevant to Health Maintenance Insurance [address] [id number] MEDICARE [facility] Address: [address] [address] [facility] Advance Directives For more information, please contact: [phone] * Full Code (Latest Code Status on [...] 12:50 PM 06/30/2018 12:[address] Scan Technician Relationship Specialty Start Date End Date Andreina Corcoran NP [address] [facility] [address] [place] [address] PCP - General Family Medicine 01/13/23 Molly Weeks NP Nurse Practitioner Urology 03/21/21 Mele Smith MD [address] [place] [address] [address] [place] [address] Referring Physician Internal Medicine 03/21/21 Marlene Perez DO [address] [facility] [address] LATONIA Willett [facility] [address] [place] [address] Consulting Physician Otolaryngology 01/13/23
== END 2024-10-06 10:21 | disposition home or self-care (01) ==
LOC: ANHLAB 10:22
PROVIDERS: PCP Internal Medicine; Visit Provider Internal Medicine
DX: I12.9 Hypertensive chronic kidney disease with stage 1 through stage 4 chronic kidney disease, or unspecified chronic kidney disease (principal); N18.9 Chronic kidney disease, unspecified; Z79.899 Other long term (current) drug therapy; Z09 Encounter for follow-up examination after completed treatment for conditions other than malignant neoplasm
CPT/HCPCS: 36415; 80053; 80061; 81003

== ENCOUNTER 2024-12-06 11:37 | Outpatient (CLI) | payer OTHER, SELFPAY ==
[2024-12-06 12:04] LABS: Basophils Percent Auto 0.6 % (0.2-1.2); Eosinophils Absolute Auto 0.1 K/mm3 (0-0.3); Eosinophils Percent Auto 0.9 % (0-4.4); Hematocrit 41.5 % (42.0-52.0); Hemoglobin 14.8 g/dL (14.0-18.0); Immature Granulocyte Absolute 0.04 K/mm3 (0.00-0.031); Immature Granulocyte Percent A 0.6 % (0-0.5); Lymphocytes Absolute Auto 1.66 K/mm3 (0.9-3.2); Lymphocytes Percent Auto 24.3 % (18.3-44.2); Mean Corpuscular HGB Conc 35.7 g/dl (32-36); Mean Corpuscular Hemoglobin 30.1 pg (26-34); Mean Corpuscular Volume 84.5 fl (80-100); Mean Platelet Volume 10.3 fl (7.4-10.4); Monocytes Absolute Auto 0.6 K/mm3 (0.1-0.6); Monocytes Percent Auto 8.9 % (2.6-8.5); Neutrophils Absolute Auto 4.4 K/mm3 (1.3-6.7); Neutrophils Percent Auto 64.7 % (45.5-73.1); Platelet Count Result 200 k/mm3 (150-375); Red Blood Count 4.91 M/mm3 (4.6-6.20); Red Cell Distribution Width 14.7 % (11.5-14.5); White Blood Count 6.8 K/mm3 (4.5-10.0)
[2024-12-06 12:16] LABS: Anion Gap 8 mmol/L (4-12); Blood Urea Nitrogen 15 mg/dL (9-20); Calcium 9.3 mg/dL (8.4-10.2); Carbon Dioxide 26 mmol/L (22-30); Chloride 105 mmol/L (98-107); Estimated Glomerular Filt Rate 45; Glucose 88 mg/dL (65-110); Potassium 4.5 mmol/L (3.4-5.0); Sodium 139 mmol/L (137-145)
== END 2024-12-06 11:38 | disposition home or self-care (01) ==
LOC: ANHLAB 11:38
PROVIDERS: PCP Internal Medicine; Visit Provider Internal Medicine
DX: I95.1 Orthostatic hypotension (principal); Z79.899 Other long term (current) drug therapy
CPT/HCPCS: 36415; 80048; 85025

== ENCOUNTER 2025-03-08 11:05 | Outpatient (CLI) | payer OTHER, SELFPAY ==
--- OUTSIDE RECORDS SUMMARY | 2025-03-08 10:55 | XMS_ITS | Clinical Summary ---
Author Organization [facility] [place] Address [address] [place] [address] Care Team Providers Care Last Pattern Grader Name Role Phone Unavailable Primary Care Provider Unavailabl e Source Comments [facility] [place],non-owned Affiliates and Associated Physician Practices is amultiple site organization consisting of ambulatory clinics and hospital sitesin [place], [place], [place] and [place]. This disclosure is being madepursuant to the Care Everywhere program and may not contain all information available regarding this patient. Last updated 18.[facility] [place] Allergies No known active allergies Medications * [...] yrs (1 - 1-dose 75+ series) 2022 DEPRESSION SCREENING 06/15/2024 COVID-19 VACCINE (2023-2 5 season) 2025 INFLUENZA VACCINE (#1) 2025 HEPATITIS B VACCINE Aged Out No [...] age to complete this topic Insurance MEDICARE [facility]
--- OUTSIDE RECORDS SUMMARY | 2025-03-08 10:55 | XMS_ITS | Clinical Summary ---
Author Organization [facility] Address [address], [address] [address] Phone Care Team Providers Care Counter Hand Name Role Phone Provider, Unknown Primary Care [...] Screening 1945 Zoster Immunization (3 of 3) 02/26/2022, 12/14/2019, 12/13/2009 Respiratory Syncytial Virus (RSV) Immunization (Adult) (1 - 1-dose 75+ series) 2022 Influenza Immunization (#1) 2025 10/0 12/2020, 03/10/2020, 03/17/2019, Additional history exists SARS-COV-2 Immunization ( season) 2025 09/16/2021, 03/09/2021, 07/30/2020, Additional history exists DTaP/Tdap/Td Immunization Discontinued 03/21/2021 TdaP Immunization Completed 03/21/2021 Pneumococcal Immunization (50+ years) Completed 01/01/2022, 01/21/2019, 08/04/2014 Hepatitis B Immunization Aged Out No longer eligible based on patient's age to complete this topic Human Papillomavirus (HPV) Immunization Aged Out No longer eligible based on patient's age to complete this topic Meningococcal Immunization (ACWY) Aged Out No longer eligible based on patient's age to complete this topic Rotavirus Immunization Aged Out No lo nger eligible based on patient's age to complete this topic Insurance MEDICARE C [employer] on file Care Teams Counter Hand Relationship Specialty Start Date End Date Provider, Unknown UNKNOWN PCP - General 01/28/22
--- OUTSIDE RECORDS SUMMARY | 2025-03-08 10:55 | XMS_ITS | Clinical Summary ---
Author Organization [facility] Address [address] [place] [address] Care Team Providers Care Analytical Sciences Director Name Role Phone Molly Weeks NP Unavailable Mele Smith MD Unavailable [phone] Andreina Corcoran NP Primary Care Provider Marlene Perez DO Unavailable [phone] Allergies No known active allergies Medications esomeprazole [...] total) by mouth daily 02/12/20 23 Active hydrOXYzine (ATARAX) 10 mg tablet Take 1 tablet (10 mg total) by mouth daily as needed (nausea) 60 tablet 2 12/11/19 24 Active cyclobenzaprin e (FLEXERIL) 10 mg tablet Take 1 tablet (10 mg total) by mouth daily as needed for muscle spasms 60 tablet 2 12/11/19 24 Active papaverine-phe ntolamine-alpr ostadil (TRIMIX) solution injection 0.1 mL by intracavernosal route once for 1 dose 5 mL 1 12/16/19 25 Active Active Problems Problem Noted Date Diagnosed Date Encounter for screening colonoscopy 06/06/2024 Dizziness and giddiness 05/28/2021 Assessment & Plan (05/28/2021 12:20 PM SINGING WAITER OR WAITRESS): Hearing and Balance testing - call with results 64 ounces of caffeine free and soda free fluid daily ounces Referral to Cardiology Sensorineural hearing loss (SNHL) of both ears 1 07/29/2020 Assessment & Plan (01/13/2023 8:25 AM CDT): -chronic, stable -continue seeing Dr. 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 Repeat in 3 years Personal history of colon cancer 05/08/2021 Overview (05/08/2021): Added automatically from request for surgery [id number] Hypertensive kidney disease with stage 3a chronic [...] daily Assessment & Plan (08/19/2021 12:01 PM SINGING WAITER OR WAITRESS): HPI: Condition is not at/near goal A&P: Discussed/ordered labs, encouraged healthy, low carbohydrate lifestyle and at least 150min/week of exercise, continue on losartan 100mg daily. Start on amlodipine 5mg daily. EKG done, normal, Slight sinus bradycardia. Nothing to be concerned with. Check blood pressure once daily. Send in blood pressure readings in [facility] in 1 week. 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 A&P: Healthy, high-protein, lower carbohydrate, lower fat lifestyle and exercise for 150min/week recommended Substitutions: Recommend tracking everything you put in your mouth on an alexsandra like [employer] or [employer] carries a zero net carb bread [...] in much longer they will become mushy [place] and/or coconut flour instead of regular flour [...] pork rinds For yogurt, try Two Good cuban yogurt Use Pinterest for recipe ideas. Type in low carb... Assessment & Plan (03/21/2021 10:11 AM CDT): HPI: Condition is stable goal BMI <30 A&P: Healthy, high-protein, lower carbohydrate, lower fat lifestyle and exercise for 150min/week recommended Substitutions: Recommend tracking everything you put in your mouth on an alexsandra like [employer] or [employer] carries a zero net carb bread [...] in much longer they will become mushy [place] and/or coconut flour instead of regular flour [...] pork rinds For yogurt, try Two Good cuban yogurt Use Pinterest for recipe ideas. Type [...] 03/21/2021 Assessment & Plan (07/13/2018 5:36 PM SINGING WAITER OR WAITRESS): Excessive Ear Wax Prevention Cerumen accumulation or excessive ear wax can cause symptoms like-Hearing loss ?Earache ?Ear fullness ?Itchiness ?Reflex cough ?Dizziness ?Tinnitus Normal ears use a cotton ball dipped in mineral oil, olive oil, Baby oil, or Temperance oil and place in the external canal [...] Encounters Date Type Department Care Team Description 12/15/2024 Orders Only [facility] Medicine ([facility]) - [facility] Medicine Urology [address] Advanced Medicine [address]th [place] [address] [place] [address] Hank Arenas NP from Last 3 Months Immunizations Immunization [...] on file Legal Sex Male 3:52 AM SINGING WAITER OR WAITRESS Gender Identity Not on file Sexual Orientation Not on file Obstetrics History Last Filed Vital Signs Vital Sign Reading Time Taken Comments Blood Pressure 139/66 08/01/2024 2:00 PM SINGING WAITER OR WAITRESS Pulse 66 08/01/2024 2:00 PM SINGING WAITER OR WAITRESS Temperature 36.7 C (98 F) 08/01/2024 2:00 PM SINGING WAITER OR WAITRESS Respiratory Rate 16 08/01/2024 2:00 PM SINGING WAITER OR WAITRESS Oxygen Saturation 98% 08/01/2024 2:00 PM SINGING WAITER OR WAITRESS Inhaled Oxygen Concentration - - Weight 72.6 kg (160 lb) 08/01/2024 11:13 AM SINGING WAITER OR WAITRESS Height 172.7 cm (5' 8) 08/01/2024 11:13 AM SINGING WAITER OR WAITRESS Body Mass Index 24.33 08/01/2024 11:13 AM SINGING WAITER OR WAITRESS Plan of Treatment Health Maintenance Due Date Last Done Comments Hepatitis B Screening 1963 Well Visit 65+ 03/24/2023 03/24/2022, 03/21/2021 Covid-19 Vaccine (2024-07 6 season) 2025 04/07/2023, 06/19/2022, 09/16/2021, Additional history exists Influenza Vaccine (#1) 2025 , 04/07/2023, 03/24/2022, Additional history exists Depression Screening 03/07/2025 03/07/2024, [...] Prostate Cancer Screening-PSA Discontinued , 03/24/2022, 05/08/2021 Procedures Procedure Name Priority Date/Time Associated Diagnosis Comments COLONOSCOPY 08/01/2024 11:38 AM SINGING WAITER OR WAITRESS PSA SCREEN Routine 01/20/2023 1:12 PM CDT HEPATITIS C ANTIBODY Routine 05/08/2021 1:46 PM SINGING WAITER OR WAITRESS Encounter for hepatitis C screening test for low risk patient from Last 3 Months or Most Recently Relevant to Health Maintenance Results * Colonoscopy (08/01/2024 11:38 AM SINGING WAITER OR WAITRESS) Anatomical Region Laterality Modality Other Narrative Procedure Note Zoran Bain MD - 08/01/2024 11:38 AM CST [facility] Patient Name: Antonio Toure Procedure Date: 08/01/2024 11:38 AM Date of : 1945 Admit Type: Outpatient Age: 79 Gender: Male Attending MD: Zoran Bain M.D. Room: [facility] ENDOSCOPY ROOM 1 Note Status: Finalized Patient [...] retrieved. Clip (MR conditional) was placed. Clip energy professional: [employer]. - Internal hemorrhoids. Recommendation: - Await pathology [...] passed under direct vision. The Pediatric Colonoscope [id number] was introduced through the anus and advanced [...] clip was successfully placed (MR conditional). Clip energy professional: [employer]. There was no bleeding at the end ofthe procedure. The rectum, sigmoid colon and descending colon appeared normal. Internal hemorrhoids were found during retroflexion. The hemorrhoids were small. Electronically signed by Zoran Bain M.D. Zoran Bain M.D. 08/01/2024 1:37:15 PM Number of Addenda: 0 Note Initiated On: 08/01/2024 11:38 AM Procedure Code(s): --- Professional --- 53197, Colonoscopy, flexible; with removal of tumor(s), polyp(s), or other lesion(s) by snare technique Diagnosis Code(s): --- Professional --- Z86.010, Personal history of colonic polyps K64.8, Other hemorrhoids D12.3, Benign neoplasm of transverse colon (hepatic flexure orsplenic flexure) CPT copyright 2020 [employer]. All rights reserved. The codes documented in this report are preliminary and upon mutual fund analyst reviewmay be revised to meet current compliance requirements. Recognized by the [place] [employer] for promoting quality in endoscopy Zoran Bain MD ENDOSCOPY PROCEDURES Final Result * PSA screen (01/20/2023 1:12 PM CDT) PSA-Total 1.73 <=6.20 ng/mL [facility] Comment: Interpretive Data AGE SEX REFERENCE INTERVAL [...] MD LAB BLOOD ORDERABLES Final Re sult [facility] [address] [facility] [place] [address] * Hepatitis C antibody (05/08/2021 1:46 PM SINGING WAITER OR WAITRESS) Hep C Ab Nonreactive Nonreactive [facility] Comment: Interpretive Data Nonreactive: Antibodies to HCV [...] last revised on 2019. Testing performed by: [facility], [address] [place] [address]., [id number] Blood 05/08/2021 1:46 PM SINGING WAITER OR WAITRESS 05/08/2021 7:24 PM SINGING WAITER OR WAITRESS Yanni Quan NP LAB MICROBIOLOGY - GENERAL ORDERABLES Final Result Performing Organization Address City/State/[facility] Co de Phone Number [facility] [address] [facility] Department [place] [address] from Last 3 Months or Most Recently Relevant to Health Maintenance Insurance MEDICARE [facility] HMO/PPO Address: [address] [address] [place] [address] [facility] HMO/PPO Address: [facility] [address] [place] [address] Advance Directives For more information, please contact: [phone] * Full Code (Latest Code Status on [...] 12:50 PM 06/30/2018 12:50 PM Care Teams Analytical Sciences Director Relationship Specialty Start Date End Date Andreina Corcoran NP [address] [facility] [address] [place] [address] PCP - General Family Medicine 01/13/23 Molly Weeks NP Nurse Practitioner Urology 03/21/21 Mele Smith MD [address] [place] [address] [address] [place] [address] Referring Physician Internal Medicine 03/21/21 Marleen Perez DO [address] [facility] [address]ON[address] Willett [facility] [address] [place] [address] Consulting Physician Otolaryngology 01/13/23
[2025-03-08 11:37] LABS: Hemoglobin A1C 5.6 % (<5.7)
[2025-03-08 11:41] LABS: Alanine Aminotransferase 24 U/L (6-50); Albumin Level 4.4 g/dL (3.5-5.1); Alkaline Phosphatase 96 U/L (38-126); Anion Gap 6 mmol/L (4-12); Aspartate Amino Transferase 36 U/L (17-59); Bilirubin,Total 1.6 mg/dL (0.2-1.3); Blood Urea Nitrogen 9 mg/dL (9-20); Calcium 9.4 mg/dL (8.4-10.2); Carbon Dioxide 26 mmol/L (22-30); Chloride 103 mmol/L (98-107); Cholesterol 113 mg/dL (0-200); Estimated Glomerular Filt Rate 44; Glucose 90 mg/dL (65-110); HDL Direct 46 mg/dL; Potassium 4.3 mmol/L (3.4-5.0); Sodium 135 mmol/L (137-145); Total Protein 7.0 g/dL (6.3-8.2); Triglycerides 75 mg/dL (<150)
[2025-03-08 11:56] LABS: Free T4 Free Thyroxine 0.91 ng/dL (0.78-2.19)
--- OUTSIDE RECORDS SUMMARY | 2025-03-08 12:00 | XMS_ITS | Clinical Summary ---
Author Organization [facility] Address [address], [address] [address] Phone Care Team Providers Care Farm Product Purchaser Name Role Phone Provider, Unknown Primary Care [...] MEDICARE C [employer] on file Care Teams Farm Product Purchaser Relationship Specialty Start Date End Date Provider, Unknown UNKNOWN PCP - General 01/28/22
--- OUTSIDE RECORDS SUMMARY | 2025-03-08 12:00 | XMS_ITS | Clinical Summary ---
Author Organization [facility] Address [address] [place] [address] Care Team Providers Care Shift Mechanic Name Role Phone Molly Weeks NP Unavailable Mele Smith MD Unavailable Andreina Corcoran NP Primary Care Provider Marlene Perez DO Unavailable Allergies No known active allergies Medications esomeprazole [...] 05/28/2021 Assessment & Plan (05/28/2021 12:20 PM MATCH UP WORKER): Hearing and Balance testing - call with results 64 ounces of caffeine free and soda free fluid daily ounces Referral to Cardiology Sensorineural hearing loss (SNHL) of both ears 1 07/29/2020 Assessment & Plan (01/13/2023 8:25 AM CDT): -chronic, stable -continue seeing Dr. 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 Repeat in 3 years Personal history of colon cancer 05/08/2021 Overview (05/08/2021): Added automatically from request for surgery [id number] Hypertensive kidney disease with stage 3a chronic [...] daily Assessment & Plan (08/19/2021 12:01 PM MATCH UP WORKER): HPI: Condition is not at/near goal A&P: Discussed/ordered labs, encouraged healthy, low carbohydrate lifestyle and at least 150min/week of exercise, continue on losartan 100mg daily. Start on amlodipine 5mg daily. EKG done, normal, Slight sinus bradycardia. Nothing to be concerned with. Check blood pressure once daily. Send in blood pressure readings in [facility] in 1 week. 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 A&P: Healthy, high-protein, lower carbohydrate, lower fat lifestyle and exercise for 150min/week recommended Substitutions: Recommend tracking everything you put in your mouth on an alexsandra like [employer] or [employer] carries a zero net carb bread [...] in much longer they will become mushy [place] and/or coconut flour instead of regular flour [...] pork rinds For yogurt, try Two Good palestinian yogurt Use Pinterest for recipe ideas. Type in low carb... Assessment & Plan (03/21/2021 10:11 AM CDT): HPI: Condition is stable goal BMI <30 A&P: Healthy, high-protein, lower carbohydrate, lower fat lifestyle and exercise for 150min/week recommended Substitutions: Recommend tracking everything you put in your mouth on an alexsandra like [employer] or [employer] carries a zero net carb bread [...] in much longer they will become mushy [place] and/or coconut flour instead of regular flour [...] pork rinds For yogurt, try Two Good palestinian yogurt Use Pinterest for recipe ideas. Type [...] 03/21/2021 Assessment & Plan (07/13/2018 5:36 PM MATCH UP WORKER): Excessive Ear Wax Prevention Cerumen accumulation or excessive ear wax can cause symptoms like-Hearing loss ?Earache ?Ear fullness ?Itchiness ?Reflex cough ?Dizziness ?Tinnitus Normal ears use a cotton ball dipped in mineral oil, olive oil, Baby oil, or [place] oil and place in the external canal [...] Department Care Team Description 12/15/2024 Orders Only [facility] Medicine ([facility]) - [facility] Medicine Urology [address] Advanced Medicine 11th [place] [address] [place] [address] Hank Arenas NP from Last 3 Months [...] on file Legal Sex Male 3:52 AM MATCH UP WORKER Gender Identity Not on file Sexual Orientation Not on file Obstetrics History Last Filed Vital Signs Vital Sign Reading Time Taken Comments Blood Pressure 139/66 08/01/2024 2:00 PM MATCH UP WORKER Pulse 66 08/01/2024 2:00 PM MATCH UP WORKER Temperature 36.7 C (98 F) 08/01/2024 2:00 PM MATCH UP WORKER Respiratory Rate 16 08/01/2024 2:00 PM MATCH UP WORKER Oxygen Saturation 98% 08/01/2024 2:00 PM MATCH UP WORKER Inhaled Oxygen Concentration - - Weight 72.6 kg (160 lb) 08/01/2024 11:13 AM MATCH UP WORKER Height 172.7 cm (5' 8) 08/01/2024 11:13 AM MATCH UP WORKER Body Mass Index 24.33 08/01/2024 11:13 AM MATCH UP WORKER Plan of Treatment Health Maintenance Due Date [...] Associated Diagnosis Comments COLONOSCOPY 08/01/2024 11:38 AM MATCH UP WORKER PSA SCREEN Routine 01/20/2023 1:12 PM CDT HEPATITIS C ANTIBODY Routine 05/08/2021 1:46 PM MATCH UP WORKER Encounter for hepatitis C screening test for low risk patient from Last 3 Months or Most Recently Relevant to Health Maintenance Results * Colonoscopy (08/01/2024 11:38 AM MATCH UP WORKER) Anatomical Region Laterality Modality Other Narrative Procedure Note Zoran Bain MD - 08/01/2024 11:38 AM CST [facility] Patient Name: Antonio Toure Procedure Date: 08/01/2024 11:38 AM Date of : 1945 Admit Type: Outpatient Age: 79 Gender: Male Attending MD: Zoran Bain M.D. Room: [facility] ENDOSCOPY ROOM 1 Note Status: Finalized Patient [...] retrieved. Clip (MR conditional) was placed. 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 - Internal hemorrhoids. Recommendation: - Await pathology [...] passed under direct vision. The Pediatric Colonoscope [id number] was introduced through the anus and advanced [...] clip was successfully placed (MR conditional). 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 There was no bleeding at the end ofthe procedure. The rectum, sigmoid colon and descending colon appeared normal. Internal hemorrhoids were found during retroflexion. The hemorrhoids were small. Electronically signed by Zoran Bain M.D. Zoran Bain M.D. 08/01/2024 1:37:15 PM Number of Addenda: 0 Note Initiated On: 08/01/2024 11:38 AM Procedure Code(s): --- Professional --- 55961, Colonoscopy, flexible; with removal of tumor(s), polyp(s), or other lesion(s) by snare technique Diagnosis Code(s): --- Professional --- Z86.010, Personal history of colonic polyps K64.8, Other hemorrhoids D12.3, Benign neoplasm of transverse colon (hepatic flexure orsplenic flexure) CPT copyright 2020 [employer]. All rights reserved. The codes documented in this report are preliminary and upon supervisor pyrotechnic loading reviewmay be revised to meet current compliance requirements. Recognized by the [employer] [employer] G[employer] for promoting quality in endoscopy Zoran Bain MD ENDOSCOPY PROCEDURES Final Result * PSA screen (01/20/2023 1:12 PM CDT) PSA-Total 1.73 <=6.20 ng/mL [facility] Comment: Interpretive Data AGE SEX REFERENCE INTERVAL [...] MD LAB BLOOD ORDERABLES Final Re sult [facility] [address] [facility] [place] [address] * Hepatitis C antibody (05/08/2021 1:46 PM MATCH UP WORKER) Hep C Ab Nonreactive Nonreactive [facility] Comment: Interpretive Data Nonreactive: Antibodies to HCV [...] revised on 2019. Testing performed by: [facility], [address] [place] [address]., [id number] Blood 05/08/2021 1:46 PM MATCH UP WORKER 05/08/2021 7:24 PM MATCH UP WORKER Yanni Quan NP LAB MICROBIOLOGY - GENERAL ORDERABLES Final Result Performing Organization Address City/State/[facility] Co de Phone Number [facility] [address] [facility] [place] [address] from Last 3 Months or Most Recently Relevant to Health Maintenance Insurance MEDICARE [facility] HMO/PPO Address: [address] [address] [place] [address] [facility] HMO/PPO Address: [facility] [address] [place] [address] Advance Directives For more information, please contact: [phone] * Full Code (Latest Code Status on [...] 12:50 PM 06/30/2018 12:50 PM Care Teams Shift Mechanic Relationship Specialty Start Date End Date Andreina Corcoran NP [address] [facility] [address] [place] [address] PCP - General Family Medicine 01/13/23 Molly Weeks NP Nurse Practitioner Urology 03/21/21 Mele Smith MD [address] [place] [address] [address] [place] [address] Referring Physician Internal Medicine 03/21/21 Marlene Perez DO [address] [facility] [address] Willett [facility] [address] [place] [address] Consulting Physician Otolaryngology 01/13/23
--- OUTSIDE RECORDS SUMMARY | 2025-03-08 12:00 | XMS_ITS | Clinical Summary ---
Author Organization [facility] Address [address] [place] [address] Care Team Providers Care Client Services Account Manager Name Role Phone Unavailable Primary Care Provider Unavailabl e Source Comments [facility],non-owned Affiliates and Associated Physician Practices is amultiple site organization consisting of ambulatory clinics and hospital sitesin [place], [place], [place] and [place]. This disclosure is being madepursuant to the Care Everywhere program and may not contain all information available regarding this patient. Last updated 18.[facility] Allergies No known active allergies Medications * [...] age to complete this topic Insurance MEDICARE [facility]
[2025-03-08 12:12] LABS: Add Urine Microscopic? NO; Appearance Urine Clear (Clear); Glucose Urine UA 2+ mg/dL (Negative); Leukocyte Esterase Ur Negative LEU/UL (Negative); Nitrate Urine Negative (Negative); Specific Grav Ur 1.004 (1.001-1.035)
[2025-03-08 12:16] LABS: Thyroid Stimulating Hormone 1.900 uIU/mL (0.465-4.680)
== END 2025-03-08 11:06 | disposition home or self-care (01) ==
LOC: ANHLAB 11:05
PROVIDERS: PCP Internal Medicine; Visit Provider Internal Medicine
DX: E78.5 Hyperlipidemia, unspecified (principal); Z79.899 Other long term (current) drug therapy; Z13.29 Encounter for screening for other suspected endocrine disorder; R73.03 Prediabetes; I10 Essential (primary) hypertension
CPT/HCPCS: 36415; 80053; 80061; 81003; 83036; 84439; 84443